=== PATIENT | male | born 1950 | race Caucasian/White ===

== ENCOUNTER → 2017-08-12 | Outpatient (CLI) | payer OTHER ==
[~2017-08-12] MED LIST: AMOX1XR PO; ATEN50 PO; Augmentin 875-1 EACH PO; FAMO20 PO; FISH OIL 1,0001 EAC1 PO; HYDACE5 PO; LEVFLO500 PO; LISI20 PO; METO100ER PO; METR500 PO; MILK THISTLE140 MG PO; OXYACE5T PO; POLTRIOPSO BOTHEYES; PROM25 PO; RXOXYACE PO; RXPROM25 PO; Saw Palmetto450 MG PO; Zofran Odt4 MG SL
== END | disposition home or self-care (01) ==
LOC: PLD 08:10 → LAB SHORT 08:10
DX: C44.41 Basal cell carcinoma of skin of scalp and neck (principal); C44.519 Basal cell carcinoma of skin of other part of trunk
CPT/HCPCS: 88305

== ENCOUNTER 2018-03-10 07:41 | Day surgery (SDC) | payer OTHER ==
[~2018-03-10] VITALS: Ht 185.4 cm; Wt 206.4 kg
[~2018-03-10 07:41] MED LIST changes: -FISH OIL 1,0001 EAC1 PO; -METO100ER PO; -MILK THISTLE140 MG PO; -POLTRIOPSO BOTHEYES; -Saw Palmetto450 MG PO
[2018-03-10] MEDS ORDERED: METO100ER PO (08:39)
[2018-03-10] MEDS ORDERED: FISH OIL 1,0001 EAC1 PO (08:40)
[2018-03-10] MEDS ORDERED: Saw Palmetto450 MG PO (08:41)
[2018-03-10] MEDS ORDERED: MILK THISTLE140 MG PO (08:41)
[2018-03-10] MEDS ORDERED: POLTRIOPSO BOTHEYES (08:42)
== END 2018-03-10 09:46 | disposition home or self-care (01) ==
LOC: ORSCSDS 07:41
PROVIDERS: Ophthalmology
PROC: 08RJ3JZ Replacement of Right Lens with Synthetic Substitute, Percutaneous Approach (ICD-10-PCS; principal; 2018-03-10 09:00)
DX: H25.11 Age-related nuclear cataract, right eye (principal); H21.509 Unspecified adhesions of iris and ciliary body, unspecified eye; I10 Essential (primary) hypertension; E78.5 Hyperlipidemia, unspecified; F17.220 Nicotine dependence, chewing tobacco, uncomplicated; Z79.899 Other long term (current) drug therapy
CPT/HCPCS: J2250; J3010; J7040; V2632

== ENCOUNTER → 2018-12-01 | Outpatient (CLI) | payer OTHER ==
[~2018-12-01] MED LIST changes: +FISH OIL 1,0001 EAC1 PO; +METO100ER PO; +MILK THISTLE140 MG PO; +POLTRIOPSO BOTHEYES; +Saw Palmetto450 MG PO
[2018-12-01 10:24] LABS: BASOPHILS ABSOLUTE AUTO 0.03 K/mm3 (0.00-0.23); BASOPHILS PERCENT AUTO 0 % (0-2); EOSINOPHILS ABSOLUTE AUTO 0.14 K/mm3 (0.00-0.68); EOSINOPHILS PERCENT AUTO 2 % (0-6); Hematocrit 45.1 % (37.0-53.0); Hemoglobin 15.7 g/dL (13.5-17.5); IMMATURE GRAN ABSOLUTE AUTO 0.02 K/mm3 (0.00-0.10); IMMATURE GRAN PERCENT AUTO 0 % (0-1); LYMPHOCYTES ABSOLUTE AUTO 1.98 K/mm3 (0.84-5.20); LYMPHOCYTES PERCENT AUTO 28 % (21-46); MONOCYTES ABSOLUTE AUTO 0.71 K/mm3 (0.16-1.47); MONOCYTES PERCENT AUTO 10 % (4-13); Mean Corpuscular HGB Conc 34.8 g/dL (31.5-36.5); Mean Corpuscular Volume 92 fL (80-100); Mean Platelet Volume 9.4 fL (9.1-12.4); NEUTROPHILS ABSOLUTE AUTO 4.12 K/mm3 (1.96-9.15); NEUTROPHILS PERCENT AUTO 59 % (41-73); Platelet Count 216 K/mm3 (150-400); RDW Standard Deviation 40.4 fL (35.1-46.3)
[2018-12-01 10:33] LABS: Alanine Aminotransfer (ALT/SGP 35 U/L (12-78); Albumin, Blood 3.8 g/dL (3.4-5.0); Alk Phos 54 U/L (40-126); Anion Gap 11 mmol/L (6-16); Aspartate Aminotrans (AST/SGOT 20 U/L (12-37); Bilirubin, Total 0.5 mg/dL (0.1-1.0); Blood Urea Nitrogen 10 mg/dL (8-24); Bun/Creatinine Ratio 11.5 (12.0-20.0); CO2, Blood 27 mmol/L (21-32); Calcium, Blood 9.5 mg/dL (8.5-10.1); Chloride, Blood 101 mmol/L (98-108); Creatinine, Blood 0.87 mg/dL (0.60-1.20); Globulin, Blood 3.8 g/dL (2.2-4.0); Glomerular Filtration Rate >60 (60-); Glucose, Blood 100 mg/dL (70-99); Potassium, Blood 4.1 mmol/L (3.5-5.5); Sodium, Blood 139 mmol/L (136-145); Total Protein, Blood 7.6 g/dL (6.4-8.2)
== END | disposition home or self-care (01) ==
LOC: LAB EV 10:18 → LAB SHORT 10:18
PROVIDERS: Physician Assistant
DX: R10.9 Unspecified abdominal pain (principal)
CPT/HCPCS: 80053; 83690; 85025

== ENCOUNTER → 2019-12-28 | Outpatient (CLI) | payer OTHER | END | disposition home or self-care (01) | LOC: LAB SHORT 08:28 → PLD 08:28 | DX: D48.5 Neoplasm of uncertain behavior of skin (principal) | CPT/HCPCS: 88305 ==

== ENCOUNTER → 2020-06-07 | Outpatient (CLI) | payer OTHER ==
[2020-06-07 14:53] LABS: Very Low Density Lipoprot Chol 32 mg/dL (6-32)
[2020-06-07 14:54] LABS: Alanine Aminotransfer (ALT/SGP 53 U/L (12-78); Albumin, Blood 4.2 g/dL (3.4-5.0); Albumin/Globulin Ratio 1.3 (0.8-1.8); Alk Phos 46 U/L (50-136); Anion Gap 4 mmol/L (6-16); Aspartate Aminotrans (AST/SGOT 28 U/L (12-37); Bilirubin, Total 0.6 mg/dL (0.1-1.0); Blood Urea Nitrogen 11 mg/dL (8-24); Bun/Creatinine Ratio 14.2 (12.0-20.0); CHOL/HDL RATIO 2.6; CO2, Blood 29 mmol/L (21-32); Calcium, Blood 8.8 mg/dL (8.5-10.1); Chloride, Blood 106 mmol/L (98-108); Cholesterol 98 mg/dL (50-200); Creatinine, Blood 0.78 mg/dL (0.60-1.20); Globulin, Blood 3.3 g/dL (2.2-4.0); Glomerular Filtration Rate >60 (60-); Glucose, Blood 98 mg/dL (70-99); HDL Cholesterol 38 mg/dL (>39); LDL/HDL RATIO 0.7; Low Density Lipoprotein Chol 28 mg/dL (0-110); Potassium, Blood 4.6 mmol/L (3.5-5.5); Sodium, Blood 139 mmol/L (136-145); Total Protein, Blood 7.5 g/dL (6.4-8.2); Triglycerides 160 mg/dL (30-160)
== END | disposition home or self-care (01) ==
LOC: LAB SHORT 12:28 → LAB 12:28
PROVIDERS: Family Medicine
DX: Z12.5 Encounter for screening for malignant neoplasm of prostate (principal); Z11.59 Encounter for screening for other viral diseases; E78.5 Hyperlipidemia, unspecified; I10 Essential (primary) hypertension
CPT/HCPCS: 80053; 80061; 86803; G0103

== ENCOUNTER 2020-11-23 13:39 | Day surgery (SDC) | payer OTHER ==
[~2020-11-23] VITALS: Ht 185.4 cm; Wt 89.0 kg
[~2020-11-23 13:39] MED LIST changes: +ATEN100 PO; +C COMPLEX1000 M1 PO; +Crestor20 MG PO; +EVENING PRIMROSE OIL PO; +FISH OIL 1,2001 EAC1 PO; +MULTIPLE VITAM1 EACH PO; +THERA-D2000 UNIT PO; +ZESTRIL40 M2 PO
== END 2020-11-23 15:15 | disposition home or self-care (01) ==
LOC: ORSCSDS 13:39
PROVIDERS: Surgery
PROC: 0DJD8ZZ Inspection of Lower Intestinal Tract, Via Natural or Artificial Opening Endoscopic (ICD-10-PCS; principal; 2020-11-23 14:45)
DX: Z12.11 Encounter for screening for malignant neoplasm of colon (principal); I10 Essential (primary) hypertension; K57.30 Diverticulosis of large intestine without perforation or abscess without bleeding; B19.10 Unspecified viral hepatitis B without hepatic coma; Z87.891 Personal history of nicotine dependence; Z79.899 Other long term (current) drug therapy
CPT/HCPCS: J2704; J7120

== ENCOUNTER 2021-12-15 09:31 | Emergency (ER) | payer OTHER ==
[~2021-12-15] VITALS: Ht 185.4 cm; Wt 88.5 kg
[2021-12-15 10:42] LABS: BASOPHILS ABSOLUTE AUTO 0.04 K/mm3 (0.00-0.23); BASOPHILS PERCENT AUTO 0 % (0-2); EOSINOPHILS ABSOLUTE AUTO 0.03 K/mm3 (0.00-0.68); EOSINOPHILS PERCENT AUTO 0 % (0-6); Hematocrit 46.5 % (37.0-53.0); Hemoglobin 15.5 g/dL (13.5-17.5); IMMATURE GRAN ABSOLUTE AUTO 0.08 K/mm3 (0.00-0.10); IMMATURE GRAN PERCENT AUTO 1 % (0-1); LYMPHOCYTES ABSOLUTE AUTO 1.35 K/mm3 (0.84-5.20); LYMPHOCYTES PERCENT AUTO 9 % (21-46); MONOCYTES ABSOLUTE AUTO 0.74 K/mm3 (0.16-1.47); MONOCYTES PERCENT AUTO 5 % (4-13); Mean Corpuscular HGB 30.9 pg (26.0-34.0); Mean Corpuscular HGB Conc 33.3 g/dL (31.5-36.5); Mean Corpuscular Volume 93 fL (80-100); NEUTROPHILS ABSOLUTE AUTO 12.07 K/mm3 (1.96-9.15); NEUTROPHILS PERCENT AUTO 84 % (41-73); Platelet Count 206 K/mm3 (150-400); RDW Coefficient Variation 12.4 % (11.7-14.2); RDW Standard Deviation 42.3 fL (35.1-46.3); Red Blood Cell Count 5.02 M/mm3 (4.30-5.90); White Blood Cell Count 14.31 K/mm3 (4.00-11.30)
[2021-12-15 10:57] LABS: Albumin, Blood 4.2 g/dL (3.4-5.0); Albumin/Globulin Ratio 1.1 (0.8-1.8); Bilirubin, Total 0.9 mg/dL (0.1-1.0); Bun/Creatinine Ratio 17.3 (12.0-20.0); Calcium, Blood 9.4 mg/dL (8.5-10.1); Creatinine, Blood 0.81 mg/dL (0.60-1.20); Globulin, Blood 3.7 g/dL (2.2-4.0); Potassium, Blood 4.2 mmol/L (3.5-5.5); Total Protein, Blood 7.9 g/dL (6.4-8.2)
[2021-12-15] MEDS ORDERED: LEVO750 PO (11:43)
[2021-12-15] MEDS ORDERED: ALBU90OI INH (11:43)
[2021-12-15] MEDS ORDERED: Prednisone50 MG PO (11:43)
[2021-12-15] MEDS ORDERED: GUAI600T33 PO (11:43)
== END 2021-12-15 11:59 | disposition home or self-care (01) ==
LOC: ER 09:31
PROVIDERS: Physician Assistant
DX: J20.9 Acute bronchitis, unspecified (principal); I10 Essential (primary) hypertension; Z79.899 Other long term (current) drug therapy; Z87.891 Personal history of nicotine dependence
CPT/HCPCS: 36415; 71046; 80053; 83690; 83880; 84484; 85025; 93005; 93010; 94640; 94664

== ENCOUNTER → 2023-01-28 | Outpatient (CLI) | payer OTHER ==
[~2023-01-28] MED LIST changes: +ALBU90OI INH; +GUAI600T33 PO; +LEVO750 PO; +Prednisone50 MG PO
== END | disposition home or self-care (01) ==
LOC: LAB SHORT 15:31 → PLD 15:31
DX: D48.5 Neoplasm of uncertain behavior of skin (principal)
CPT/HCPCS: 88305

== ENCOUNTER → 2023-02-11 | Outpatient (CLI) | payer OTHER ==
[~2023-02-11] MED LIST changes: +CYCL10 PO; +LIDO700A20 TOP; +NAPR500 PO
== END ==
LOC: LAB SHORT 14:52 → LAB 14:52 → PLD 14:52
DX: L72.9 Follicular cyst of the skin and subcutaneous tissue, unspecified (principal)
CPT/HCPCS: 88304

== ENCOUNTER 2023-02-20 02:48 | Emergency (ER) | payer OTHER | END 2023-02-20 04:28 | disposition home or self-care (01) | LOC: ER 02:48 | DX: M62.838 Other muscle spasm (principal); I10 Essential (primary) hypertension; Z79.899 Other long term (current) drug therapy; Z87.891 Personal history of nicotine dependence ==

== ENCOUNTER 2023-07-08 13:11 | Inpatient (IN) | payer OTHER ==
[~2023-07-08] VITALS: Ht 185.4 cm; Wt 90.9 kg
[~2023-07-08 13:11] MED LIST changes: -FISH OIL 1,2001 EAC1 PO; +FISH OIL 1,2001 EAC4 PO
[2023-07-08 13:33] LABS: BASOPHILS ABSOLUTE AUTO 0.02 K/mm3 (0.00-0.23); BASOPHILS PERCENT AUTO 0 % (0-2); EOSINOPHILS PERCENT AUTO 0 % (0-6); Hematocrit 49.3 % (37.0-53.0); Hemoglobin 16.9 g/dL (13.5-17.5); IMMATURE GRAN ABSOLUTE AUTO 0.02 K/mm3 (0.00-0.10); IMMATURE GRAN PERCENT AUTO 0 % (0-1); LYMPHOCYTES ABSOLUTE AUTO 1.76 K/mm3 (0.84-5.20); LYMPHOCYTES PERCENT AUTO 25 % (21-46); MONOCYTES ABSOLUTE AUTO 0.77 K/mm3 (0.16-1.47); MONOCYTES PERCENT AUTO 11 % (4-13); Mean Corpuscular HGB Conc 34.3 g/dL (31.5-36.5); Mean Corpuscular Volume 93 fL (80-100); NEUTROPHILS ABSOLUTE AUTO 4.59 K/mm3 (1.96-9.15); NEUTROPHILS PERCENT AUTO 64 % (41-73); Platelet Count 162 K/mm3 (150-400); RDW Coefficient Variation 12.3 % (11.7-14.2); RDW Standard Deviation 42.3 fL (35.1-46.3); Red Blood Cell Count 5.28 M/mm3 (4.30-5.90); White Blood Cell Count 7.16 K/mm3 (4.00-11.30)
[2023-07-08 14:08] LABS: Albumin, Blood 3.8 g/dL (3.4-5.0); Bilirubin, Total 0.6 mg/dL (0.1-1.0); Bun/Creatinine Ratio 25.6 (12.0-20.0); Creatinine, Blood 0.74 mg/dL (0.60-1.20); Potassium, Blood 3.6 mmol/L (3.5-5.5); Total Protein, Blood 7.8 g/dL (6.4-8.2)
[2023-07-08 18:49] VITALS: BP 165/90
[2023-07-08] MEDS ORDERED: ROSU5 PO (18:50)
[2023-07-08] MEDS ORDERED: ATEN25 PO (18:51)
[2023-07-08] MEDS ORDERED: AMLO5 PO (18:51)
[2023-07-08] MEDS ORDERED: LISI20 PO (18:59)
[2023-07-08] MEDS ORDERED: Prinivil10 MG PO (19:00)
[2023-07-08 20:40] VITALS: BP 151/86
--- NOTE | 2023-07-08 23:58 | NUR ---
NGT INSERTION ATTEMPTED/REMOVAL: NGT INSERTION WAS 1ST ATTEMPTED AT 1945 W/MINIMAL RESISTANCE AND A SMALL AMT OF BILE COLORED OUTPUT INITIALLY OBSERVED. CXR WAS RX'D AND COMPLETED AND NGT APPEARED COILED AND DISPLACED. A PORTION OF THE TUBE EXTENDED INTO PT'S STOMACH BUT THE TIP WAS POSITIONED WITHIN HIS ESOPHAGUS. SOURAV (PLANER OPERATOR / GRADER) INSTRUCTED STAFF TO RETRACT NGT APPROX HALF IT'S LENGTH THEN ADVANCE IT AGAIN TO DETERMINE IF TUBE WOULD UNCOIL. F/U CXR AT 2105 SHOWED NGT WAS STILL DISPLACED AND REMAINED UNCHANGED. SOURAV REVIEWED ALL IMAGING AND INSTRUCTED STAFF REMOVE NGT W/NO FURTHER ATTEMPTS REQUIRED AT THIS TIME. HE CHANGED ZOFRAN TO Q4H PRN AND FENTANYL TO 25-50 MCG Q2H PRN FOR SYMPTOMATIC MANAGEMENT PENDING AM SURGICAL CX, FURTHER INTERVENTIONS AND RECCOMENDATIONS TO BE MADE BY THIS MD. NGT WAS PULLED AT 2200 AND ZOFRAN 4MG IV WAS RECIEVED AT 2346 FOR GOOD EFFECT. ABDO DISTENSION PERSISTS BUT PT HAS DENIED PAIN AND REPORTED RELIEF SINCE NGT REMOVAL AND PRN MEDS WERE RECIEVED.
[2023-07-09 05:03] VITALS: BP 128/72
[2023-07-09 05:15] LABS: BASOPHILS ABSOLUTE AUTO 0.03 K/mm3 (0.00-0.23); BASOPHILS PERCENT AUTO 1 % (0-2); EOSINOPHILS ABSOLUTE AUTO 0.04 K/mm3 (0.00-0.68); EOSINOPHILS PERCENT AUTO 1 % (0-6); Hematocrit 42.4 % (37.0-53.0); Hemoglobin 14.4 g/dL (13.5-17.5); IMMATURE GRAN ABSOLUTE AUTO 0.02 K/mm3 (0.00-0.10); IMMATURE GRAN PERCENT AUTO 0 % (0-1); LYMPHOCYTES ABSOLUTE AUTO 1.74 K/mm3 (0.84-5.20); LYMPHOCYTES PERCENT AUTO 33 % (21-46); MONOCYTES ABSOLUTE AUTO 0.67 K/mm3 (0.16-1.47); MONOCYTES PERCENT AUTO 13 % (4-13); Mean Corpuscular HGB 32.1 pg (26.0-34.0); Mean Corpuscular Volume 95 fL (80-100); Mean Platelet Volume 9.4 fL (9.1-12.4); NEUTROPHILS ABSOLUTE AUTO 2.85 K/mm3 (1.96-9.15); NEUTROPHILS PERCENT AUTO 53 % (41-73); Platelet Count 151 K/mm3 (150-400); RDW Coefficient Variation 12.1 % (11.7-14.2); RDW Standard Deviation 42.6 fL (35.1-46.3); Red Blood Cell Count 4.48 M/mm3 (4.30-5.90); White Blood Cell Count 5.35 K/mm3 (4.00-11.30)
[2023-07-09 05:39] LABS: Albumin, Blood 3.1 g/dL (3.4-5.0); Bilirubin, Total 0.6 mg/dL (0.1-1.0); Bun/Creatinine Ratio 22.1 (12.0-20.0); Calcium, Blood 7.5 mg/dL (8.5-10.1); Creatinine, Blood 0.68 mg/dL (0.60-1.20); Potassium, Blood 3.6 mmol/L (3.5-5.5); Total Protein, Blood 6.1 g/dL (6.4-8.2)
--- NOTE | 2023-07-09 06:38 | NUR ---
SUMMARY: PT A/OX4, IS INDEPENDENT IN ROOM AND CALLS APPROPRIATELY TO SPECIFY NEEDS. HE REMAINS NPO FOR PARTIAL SBO W/LR INFUSING PER EMAR AND MOUTH SWABS PROVIDED PRN. NGT PLACEMENT FAILED IN ER AND THIS RN ATTEMPTED UPON ARRIVAL TO FLOOR. NGT WAS AGAIN COILED AND DISPLACED X2, SEE PREVIOUS NOTE FOR DETAILS. SX CONSULT CALLED TO DR.SPENCE AG.SERVICE AND HOSPITALIST ADVISED TO MANAGE SYMPTOMS W/PRN MEDS PENDING FURTHER INSTRUCTION/RECOMMENDATION FROM SURGEON. ABDO REMAINS FIRM/DISTENDED AND HE INTERMITTENTLY REPORTED MILD "BURNING" SENSATION, FENTANYL RECEIVED PRN FOR GOOD EFFECT. ZOFRAN PRN WAS ALSO PROVIDED FOR TOLERABLE RELIEF OF NAUSEA W/O EMESIS. VSS/AFEBRILE, NO ACUTE CHANGES. WCTM AND REPORT TO DAY RN.
[2023-07-09 07:37] VITALS: BP 126/73
[2023-07-09 15:34] VITALS: BP 146/83
--- NOTE | 2023-07-09 18:13 | NUR ---
SUMMARY- PT A/O X4, INDEPENDANT IN ROOM. AMBULATES TO BATHROOM. IVF INFUSING. PT HAS BEEN NPO, STARTED ICE CHIPS AFTER 1000 AFTER PT HAD XLG BM. ABD IS DISTENDED BUT BT NORMOACTIVE, FELT LESS DISTENDED AFTER BM. DR PONCE HERE TO EVAL PT AT 1630, STATES TO REST BOWEL AND CONT WITH IVF, LIKELY BOWEL WILL RECOVER ON IT'S OWN. WILL REEVAL IN AM. MEDICATED WITH FENTANLY X2 WITH RELEIF OF DISCOMFORT. ZOFRAN ONCE FOR NAUSEA, BUT PT FEELS ALOT BETTER THAN PREVOUS DAYS. WILL REPORT TO NOC RN
[2023-07-09 19:57] VITALS: BP 139/79
--- NOTE | 2023-07-10 04:05 | NUR ---
SHIFT SUMMARY PATIENT HAD NO ACUTE CHANGES. AXO X4 AND INDEPENDENT IN ROOM. NPO. PIV REMAINS INTACT. LR INFUSING @ 75 mL/HR. REPORTED ABDOMINAL PAIN AND IV FENTANYL 50 MCG GIVEN PER EMAR. N/V X ONE AND IV ZOFRAN GIVEN WITH GOOD EFFECT. VSS/AFEBRILE. DENIES CHEST PAIN AND SOB. CBG Q6 CHECK 88. CALL LIGHT IN REACH. BED IN LOWEST POSITION. WILL CONTINUE TO MONITOR UNTIL DAY SHIFT NURSE ASSUMES CARE.
[2023-07-10 04:14] VITALS: BP 144/83
[2023-07-10 04:40] LABS: BASOPHILS ABSOLUTE AUTO 0.02 K/mm3 (0.00-0.23); BASOPHILS PERCENT AUTO 1 % (0-2); EOSINOPHILS PERCENT AUTO 2 % (0-6); Hemoglobin 13.1 g/dL (13.5-17.5); IMMATURE GRAN ABSOLUTE AUTO 0.01 K/mm3 (0.00-0.10); IMMATURE GRAN PERCENT AUTO 0 % (0-1); LYMPHOCYTES ABSOLUTE AUTO 1.32 K/mm3 (0.84-5.20); LYMPHOCYTES PERCENT AUTO 30 % (21-46); MONOCYTES ABSOLUTE AUTO 0.39 K/mm3 (0.16-1.47); MONOCYTES PERCENT AUTO 9 % (4-13); Mean Corpuscular HGB 31.6 pg (26.0-34.0); Mean Corpuscular HGB Conc 33.6 g/dL (31.5-36.5); Mean Corpuscular Volume 94 fL (80-100); Mean Platelet Volume 9.1 fL (9.1-12.4); NEUTROPHILS PERCENT AUTO 59 % (41-73); Platelet Count 128 K/mm3 (150-400); RDW Standard Deviation 41.4 fL (35.1-46.3); Red Blood Cell Count 4.15 M/mm3 (4.30-5.90); White Blood Cell Count 4.44 K/mm3 (4.00-11.30)
[2023-07-10 05:03] LABS: Albumin, Blood 2.9 g/dL (3.4-5.0); Bilirubin, Total 0.6 mg/dL (0.1-1.0); Bun/Creatinine Ratio 17.9 (12.0-20.0); Calcium, Blood 7.7 mg/dL (8.5-10.1); Creatinine, Blood 0.73 mg/dL (0.60-1.20); Globulin, Blood 2.9 g/dL (2.2-4.0); Potassium, Blood 3.7 mmol/L (3.5-5.5); Total Protein, Blood 5.8 g/dL (6.4-8.2)
[2023-07-10 07:21] VITALS: BP 153/76
--- NOTE | 2023-07-10 08:43 | NUR ---
CONFIRMED WITH DR. BERGMAN TO NOT ATTEMPT NG TUBE PLACEMENT. PATIENT WILL SWALLOW/DRINK BARRIUM SOLUTION FOR SMALL BOWEL FOLLOW THROUGH TEST.
[2023-07-10 15:53] VITALS: BP 161/88
--- NOTE | 2023-07-10 18:13 | NUR ---
SHIFT SUMMARY: PT IS A 72 YEAR OLD MALE HERE FOR A PARTIAL SMALL BOWEL OBSTRUCTION; HIS SMALL BOWEL FOLLOW THROUGH PROCEDURE SHOWED THAT TODAY. PER DR. PONCE OKAY TO ADVANCE TO A CLEAR LIQUID DIET. ORDER WAS PLACED AND PATIENT HAS BEEN TOLERATING LIQUIDS WELL. HE CONTINUES TO BE ABDOMINALLY DISTENDED, BUT DENIES TENDERNESS. HE COMPLAINED OF SOME NAUSEA EARLIER TODAY AND WAS MEDICATED, BUT HAS NOT COMPLAINED SINCE. HE IS ALERT AND ORIENTED, INDEPENDENT IN THE ROOM, AND USES HIS CALL LIGHT APPROPRIATELY. NO SIGNS OR SYMPTOMS OF DISTRESS. PLAN OF CARE ONGOING.
--- NOTE | 2023-07-10 18:38 | NUR ---
REVIEWED NEW ORDER FOR D5%WITHNS FLUIDS ORDERED BY DR. BERGMAN. CALLED TO TOUCH BASE AND TO CLARIFY IF HE WANTED FLUIDS TO BE STARTED SINCE PATIENT HAS NOW BEEN ADVANCED TO CLEAR LIQUID DIET WITH DR. PONCE. CALLED NO ANSWER LEFT A MESSAGE, WAITING FOR RESPONSE. WILL LET AIRPLANE CLEANER KNOW.
[2023-07-10 19:17] VITALS: BP 162/87
[2023-07-11 04:19] VITALS: BP 162/80
--- NOTE | 2023-07-11 04:47 | NUR ---
PATIENT IS ALERT AND ORIENTED; LATEST VITALS TAKEN AND RECORDED; WITH PERIPHERAL LINE ON RIGHT UPPER ARM PATENT AND INTACT. NO COMPLAINTS MADE THROUGHOUT THE NIGHT; NO PAIN VERBALIZED; ON CLEAR LIQUID. STATED THAT HE HAD SO MUCH BOWEL MOVEMENT YESTERDAY. HE IS LOOKING FORWARD TO UPCOMING DOCTOR'S ORDER WHETHER TO GO HOME OR ADDITIONAL PROCEDURES TO BE DONE.
[2023-07-11 04:50] LABS: BASOPHILS ABSOLUTE AUTO 0.01 K/mm3 (0.00-0.23); BASOPHILS PERCENT AUTO 0 % (0-2); EOSINOPHILS ABSOLUTE AUTO 0.11 K/mm3 (0.00-0.68); EOSINOPHILS PERCENT AUTO 2 % (0-6); Hematocrit 41.5 % (37.0-53.0); Hemoglobin 14.3 g/dL (13.5-17.5); IMMATURE GRAN ABSOLUTE AUTO 0.02 K/mm3 (0.00-0.10); IMMATURE GRAN PERCENT AUTO 0 % (0-1); LYMPHOCYTES ABSOLUTE AUTO 1.37 K/mm3 (0.84-5.20); LYMPHOCYTES PERCENT AUTO 30 % (21-46); MONOCYTES ABSOLUTE AUTO 0.41 K/mm3 (0.16-1.47); MONOCYTES PERCENT AUTO 9 % (4-13); Mean Corpuscular HGB 31.8 pg (26.0-34.0); Mean Corpuscular HGB Conc 34.5 g/dL (31.5-36.5); Mean Corpuscular Volume 92 fL (80-100); NEUTROPHILS ABSOLUTE AUTO 2.59 K/mm3 (1.96-9.15); NEUTROPHILS PERCENT AUTO 58 % (41-73); Platelet Count 148 K/mm3 (150-400); RDW Coefficient Variation 11.9 % (11.7-14.2); RDW Standard Deviation 40.2 fL (35.1-46.3); White Blood Cell Count 4.51 K/mm3 (4.00-11.30)
[2023-07-11 05:17] LABS: Bun/Creatinine Ratio 19.6 (12.0-20.0); Calcium, Blood 8.1 mg/dL (8.5-10.1); Creatinine, Blood 0.61 mg/dL (0.60-1.20); Potassium, Blood 3.4 mmol/L (3.5-5.5)
[2023-07-11 07:31] VITALS: BP 158/89
--- NOTE | 2023-07-11 09:56 | NUR ---
NOTE: PATIENT POTASSIUM VALUE THIS AM WAS 3.4. OT KPHOS ORDERED, GIVEN PER ORDER. PATIENT REPORTS PAINFUL TO IV SITE, IV PATENT KPHOS INFUSION RATE WAS TITRATED DOWN AND RUN CONCURRENTLY c NS, BUT PATIENT STILL REPORTS OF BEING PAINFUL AND NOT TOLERATING. PATIENT REFUSED, PER PATIENT "I DON'T WANT THIS AND I NEEDED THIS MEDICATION STOP." NOTIFIED DR. VARGAS REGARDING THIS ISSUE. RECEIVED ORDER FROM DR. VARGAS TO GIVE KPHOS PO 20 MEQ NOW.
[2023-07-11 14:48] VITALS: BP 150/88
--- NOTE | 2023-07-11 15:42 | NUR ---
SHIFT SUMMARY: PATIENT A/OX4, ANSWER TO QUESTIONS APPROPRIATELY AND ABLE TO MAKE NEEDS KNOWN. PATIENT DENIES N/V, PAIN/TENDERNESS TO ABDOMEN, CP/PRESSURE AND DIZZINESS. PATIENT IS INDEPENDENT IN ROOM AND AMBULATES IN HALLWAYS T/O SHIFT. PATIENT DIET ADVANCED TO FL AT LUNCH TIME AND TOLERATING WELL. PATIENT K SLIGHTLY LOW THIS AM, RECEIVED OT DOSE OF PO K. PATIENT HAS NO COMPLAINTS OR DENIES NEW CONCERNED THIS SHIFT. VITAL SIGNS REVIEWED. PIV TO KEO SALINE LOCKED. CALL LIGHT IN REACH.
[2023-07-11 19:35] VITALS: BP 171/78
[2023-07-12 03:46] VITALS: BP 143/81
--- NOTE | 2023-07-12 04:27 | NUR ---
SHIFT SUMMARY CURT WAS ALERT, FULLY ORIENTED, AND INDEPENDENT IN ROOM AT TIME OF ASSESSMENT. PT HAS NO NEW CONCERNS OR COMPLAINTS. PT CONDITION IS STABLE, NO ACUTE EVENTS OR CHANGES IN CONDITION. PT RESTING IN BED AT AT A LOW POSITION WITH CALL LIGHT IN REACH. PLAN IS TO DISCHARGE HOME ON DAYSHIFT TODAY.
--- NOTE | 2023-07-12 04:31 | NUR ---
SHIFT SUMMARY CURT WAS ALERT, FULLY ORIENTED, AND INDEPENDENT IN ROOM AT TIME OF ASSESSMENT. PT HAS NO NEW CONCERNS OR COMPLAINTS. PT CONDITION IS STABLE, NO ACUTE EVENTS OR CHANGES. PT RESTING IN BED AT AT A LOW POSITION WITH CALL LIGHT IN REACH. PLAN IS TO DISCHARGE HOME ON DAYSHIFT TODAY.
[2023-07-12 06:03] LABS: BASOPHILS ABSOLUTE AUTO 0.02 K/mm3 (0.00-0.23); BASOPHILS PERCENT AUTO 0 % (0-2); EOSINOPHILS ABSOLUTE AUTO 0.13 K/mm3 (0.00-0.68); EOSINOPHILS PERCENT AUTO 3 % (0-6); Hematocrit 40.4 % (37.0-53.0); Hemoglobin 13.9 g/dL (13.5-17.5); IMMATURE GRAN ABSOLUTE AUTO 0.03 K/mm3 (0.00-0.10); IMMATURE GRAN PERCENT AUTO 1 % (0-1); LYMPHOCYTES ABSOLUTE AUTO 1.76 K/mm3 (0.84-5.20); LYMPHOCYTES PERCENT AUTO 34 % (21-46); MONOCYTES ABSOLUTE AUTO 0.56 K/mm3 (0.16-1.47); MONOCYTES PERCENT AUTO 11 % (4-13); Mean Corpuscular HGB 31.8 pg (26.0-34.0); Mean Corpuscular HGB Conc 34.4 g/dL (31.5-36.5); Mean Corpuscular Volume 92 fL (80-100); Mean Platelet Volume 9.1 fL (9.1-12.4); NEUTROPHILS ABSOLUTE AUTO 2.73 K/mm3 (1.96-9.15); NEUTROPHILS PERCENT AUTO 52 % (41-73); Platelet Count 146 K/mm3 (150-400); RDW Coefficient Variation 11.9 % (11.7-14.2); RDW Standard Deviation 40.5 fL (35.1-46.3); Red Blood Cell Count 4.37 M/mm3 (4.30-5.90); White Blood Cell Count 5.23 K/mm3 (4.00-11.30)
[2023-07-12 06:20] LABS: Bun/Creatinine Ratio 9.9 (12.0-20.0); Calcium, Blood 8.6 mg/dL (8.5-10.1); Creatinine, Blood 0.81 mg/dL (0.60-1.20); Potassium, Blood 3.4 mmol/L (3.5-5.5)
[2023-07-12 07:20] VITALS: BP 141/78
--- NOTE | 2023-07-12 12:53 | NUR ---
SHIFT/DISCHARGE SUMMARY: NO NEW CHANGES IN PATIENT CONDITION THIS SHIFT. PATIENT A/OX4. PATIENT REPORTS HAD LARGE LIQUID BROWN BM THIS AM. PATIENT DIET ADVANCED TO LOW FIBER FOR BREAKFAST, TOLERATING WELL AND DENIES ABDOMINAL PAIN OR DISCOMFORT. PATIENT HAS BEEN AMBULATING INDEPENDENTLY IN ROOM AND HALLWAY. PATIENT IS EAGER TO GO HOME. DR. RAE CAME AND SAW PATIENT THIS AM. PER DR. RAE HE CAN GO HOME TODAY AND FOLLOW UP IN TWO WEEKS. PIV TO KEO VELAZQUEZ. PATIENT RECEIVED SCHEDULED MEDS PER EMAR. VITAL SIGNS REVIEWED. PATIENT DISCHARGE HOME. PATIENT COULD NOT WAIT FOR DISCHARGE PAPER TO GET IT DONE. PER PATIENT "MY AND I ALREADY MADE A PLAN AND WE ARE RUNNING LATE." PATIENT HAS NO NEW MEDICATION ORDER. EDUCATE PATIENT REGARDING ADMITITNG DX'S OF SBO, S/S, TX- CONTINUE TO HAVE LOW FIBER DIET PER GI, FOLLOW UP c GI WITHIN 2 WEEKS, PCP WITHIN 72 HRS, AND SELF CARE. PATIENT VERBALIZED UNDERSTANDING AND NO FURTHER QUESTIONS. OFFERED TO BE TRANSPORTED VIA WHEELCHAIR BY STAFF, BUT DECLINE. PER PATIENT "I RATHER WALK, BUT THANK YOU." PATIENT LEFT THE ROOM AT AROUND 1255 AND ACCOMPANIED BY SPOUSE.
[2023-07-12] MEDS ORDERED: APHEN325 MG PO (12:56)
== END 2023-07-12 12:52 | disposition home or self-care (01) | DRG 390 ==
LOC: ER 13:11 → MEDS 13:12 → SURS 13:12 → MEDS 18:44 → ENPENDDIS 07-12 11:36 → MEDS 07-12 12:52
PROVIDERS: Family Medicine; Physician Assistant; ADMIT Student in an Organized Health Care Education/Training Program
DX: K56.600 Partial intestinal obstruction, unspecified as to cause (principal); I10 Essential (primary) hypertension; E87.6 Hypokalemia; D69.6 Thrombocytopenia, unspecified; R73.9 Hyperglycemia, unspecified; F10.90 Alcohol use, unspecified, uncomplicated; Z87.19 Personal history of other diseases of the digestive system; Z90.49 Acquired absence of other specified parts of digestive tract; Z90.89 Acquired absence of other organs; Z87.891 Personal history of nicotine dependence; Z79.51 Long term (current) use of inhaled steroids; Z79.811 Long term (current) use of aromatase inhibitors; Z79.899 Other long term (current) drug therapy
CPT/HCPCS: 36415; 71045; 74019; 74177; 74250; 80048; 80053; 82947; 83690; 83735; 85025; 94760; 96361; 96374; 96375; 96376; 99285-25; A9270; G0378; J0360; J0780; J2405; J3010; J3480; J7030; J7050; J7120; Q9967